=== PATIENT | male | born 1940 | race Hispanic/Latino ===

== ENCOUNTER → 2017-01-10 | Outpatient (CLI) | payer MEDICARE, OTHER ==
[2017-01-10 19:55] VITALS: BP 130/80
--- NOTE | 2017-01-10 19:56 | Urgent Care T Sheet Gen (E) ---
Intake General Temperature (Fahrenheit): 98.4 Pulse: 74 Blood Pressure Systolic: 130 Blood Pressure Diastolic: 80 Respirations: 20 SPO2: 94% Chief Complaint: UC Respiratory Complaint Description of Symptoms This 76 y/o male is here today because of cough since last week and it is really bothering him at work. He tells me that 3 weeks ago he had cold symptoms but those resolved with the exception of this cough. He says it has been productive at times. He has been able to sleep. He has tried some over the counter remedies without improvement. His throat is slightly sore as well. He has not had fever. Source: Patient Exam Limitations: No limitations History of Present Illness Onset & Duration: Days Timing: Still present Associated Symptoms: Cough Recent Trauma: No Similar Sympotms Previously: No Respiratory Constitutional Symptoms: No syptoms reported EENTM: See HPINo Nose Congestion, Throat pain Respiratory: See HPI CoughNo Short of breath, No Wheezing Cardiovascular: No symptoms reported Gastrointestinal/Abdominal: No symptoms reported Genitourinary: No symptoms reported Musculoskeletal: No symptoms reported Skin: No symptoms reported Neurological: No symptoms reported Hematologic/Lymphatic: No symptoms reported Immunologic/Allergies: No symptoms reported All Other Systems Reviewed Remaining Systems: All other systems reviewed with negative findings Physical Exam Physical Exam General Appearance: WD/WN No apparent distress Eyes, Ears, Nose, Throat Ex: PERRL/EOMI Normal ENT inspection TMs normal Pharynx normal Neck Exam: Non tender Full range of motion Supple Normal inspection Normal thyroid Respiratory Exam: Chest non-tender Lungs clear Normal breath sounds No respiratory distress No accessory muscles used Other (frequent dry cough noted ) Cardiovascular Exam: Regular rate, rhythm No edema No gallop No JVD No murmur Skin Exam: Normal color Warm/dry/intact No rashes No embolic lesions Neurologic/Psychiatric Exam: Oriented times 4 CN's II-X nml No motor deficits No sensory deficits Mood/affect nml Departure Urgent Care Impression Chief Complaint: UC Respiratory Complaint Impression: Primary Impression: Bronchitis Additional Impression: Cough Departure Disposition: 01 HOME OR SELF-CARE Condition: Stable Additional Instructions: I have opted to treat the patient with a Z-pack. He will take 500mg today and then beginning tomorrow he will do 250mg daily for 4 days. Additionally to help with cough I have given him Tessalon Pearls 100mg 1-2 every 8 hours as needed for cough. I have advised the patient if he has no improvement in symptoms later this week he will need to follow up. He is comfortable with the treatment plan as outlined. End of report . KEN GRIFFITH January 10, 2017 19:55
== END ==
LOC: MHUC 18:49
PROVIDERS: ATTEND Physician Assistant Medical
DX: J40 Bronchitis, not specified as acute or chronic (principal); R05 Cough
CPT/HCPCS: 99213